=== PATIENT | male | born 1970 | race Caucasian/White ===

== ENCOUNTER → 2017-03-01 10:08 | Outpatient (CLI) | payer MEDICAID | END | disposition home or self-care (01) | LOC: D.CT 10:08 | DX: R10.9 Unspecified abdominal pain (principal); R05 Cough ==

== ENCOUNTER → 2018-07-05 09:33 | Outpatient (CLI) | payer BC | END | disposition home or self-care (01) | LOC: D.RAD 09:33 | DX: M54.5 Low back pain (principal); R05 Cough ==

== ENCOUNTER → 2018-08-29 10:36 | Outpatient (CLI) | payer BC | END | disposition home or self-care (01) | LOC: D.RAD 10:36 | DX: R51 Headache (principal) ==